=== PATIENT | male | born 1985 | race Caucasian/White ===

== ENCOUNTER 2016-05-09 19:07 | Emergency (ER) ==
[2016-05-09] MEDS ORDERED: DECADRON IM ONE (20:13)
[2016-05-09] MEDS ORDERED: XYLOCAINE-MPF 1% INJ ONE (20:13)
[2016-05-09] MEDS ORDERED: ROCEPHIN IM ONE (20:13)
--- NOTE | 2016-05-09 20:14 | PROVIDER DOCUMENTATION ---
[facility]-EE General <AbramNingnarda Ag - Last Filed: 05/09/16 20:13> - General Source: patient - [facility]: reports: throat Quality of Pain: reports: pressure Severity: reports: mild Onset/Duration: reports: 2 days ago Timing: reports: still present Associated Symptoms: reports: cough, facial pain/swelling, nasal congestion/ drainage, sore throat. denies: change in hearing, drooling, ear drainage, fever , malaise, poor fluid intake, poor solids intake, sinus infection, tooth pain, voice change Similar Symptoms Previously?: No Recently seen or treated by another doctor?: No - Throat/Dental Throat/Dental Problem Symptoms: reports: sore throat, throat swelling. denies: toothache, jaw pain, swelling of jaw/face, trouble breathing, unable to swallow Recently seen a dentist or have an appointment?: No <Wesley Lechuga - Last Filed: 05/09/16 20:26> - General Chief Complaint: Cold Symptoms Stated Complaint: COUGH, CONGESTION Time Seen by Provider: 05/09/16 20:10 Allergies/Adverse Reactions: Patient Allergies Allergy/AdvReac Type Severity Reaction Status Date / Time amoxicillin [Amoxicillin] Allergy HIVES Verified 05/09/16 19:45 Penicillins Allergy HIVES Verified 05/09/16 19:45 Home Medications: Home Medication List Medication Instructions Recorded Confirmed Last Taken Type Cephalexin [Keflex] 500 mg PO BID #20 capsule 05/09/16 Unknown Rx - History of Present Illness-[facility] General Nature of Presenting Problem: Pt is a 31 yom who presents to ER with CC of a 48 hour hx of cough, congestion, sinus pain, and sore throat. No further complaints. (Wesley Lechuga) Review of Systems - Adult - REVIEW OF SYSTEMS - ADULT Constitutional: denies: chills, fever, fatique, night sweats, weight gain, weight loss Eyes: reports: no symptoms reported Ears, Nose, Mouth & Throat: reports: sinus problem, throat pain. denies: ear discharge, ear pain, hearing loss, nose pain, hoarseness, throat swelling Cardiovascular: reports: no symptoms reported Respiratory: reports: cough. denies: chronic cough, dyspnea on exertion, excessive sputum production, hemoptysis, pleurisy, shortness of breath, wheezing Gastrointestinal: reports: no symptoms reported Genitourinary: reports: no symptoms reported Musculoskeletal: reports: no symptoms reported Integumentary: reports: no symptoms reported Neurological: reports: no symptoms reported Psychiatric: reports: no symptoms reported Endocrine: reports: no symptoms reported Hematologic/Lymphatic: reports: no symptoms reported Allergic/Immunologic: reports: no symptoms reported All Other Systems: Reviewed and Negative <Wesley Lechuga - Last Filed: 05/09/16 20:26> Past History - Adult - PAST MEDICAL HISTORY-ADULT Review of Records: reports: Nursing Assessment Review, Medications Reviewed - IMMUNIZATION STATUS Childhood Immunizations: See Nurse Assessment Flu Vaccine: See Nurse Assessment <Wesley Lechuga - Last Filed: 05/09/16 20:26> Physical Exam- EENT - Physical Exam EENT Initial Vital Signs Reviewed: Yes General Appearance: appears well, alert, mild distress. negative: no apparent distress, lethargic, slow to respond, obtunded, combative Ear Exam: bilateral ear: auricle normal, canal normal, TM normal Throat Exam: normal mouth inspection, mandibular swelling, tonsillar exudate, tonsillar swelling. negative: pharynx normal, dental tenderness Neck: non-tender, full range of motion, supple, lymphadenopathy. negative: C- spine tenderness, limited range of motion Respiratory: chest non-tender, lungs clear, normal breath sounds. negative: respiratory distress, decreased breath sounds, accessory muscle use, wheezing Cardiovascular: normal peripheral pulses, regular rate, rhythm. negative: bradycardia, tachycardia Abdominal Exam: normal bowel sounds, non tender, soft. negative: abnormal bowel sounds, distended, tenderness Lymphatic: cervical node tenderness. negative: no adenopathy Back Exam: no CVA tenderness, no vertebral tenderness. negative: CVA tenderness Integumentary: normal color, normal turgor, warm/dry Neurologic: grossly normal, no motor/sensory deficits. negative: facial droop, focal weakness, motor weakness, sensory deficit Psych/Mental Status: normal mood/affect, normal thought content, normal thought process, oriented x 3 <Wesley Lechuga - Last Filed: 05/09/16 20:26> Progress <Ning Valverde - Last Filed: 05/09/16 20:13> <Wesley Lechuga - Last Filed: 05/09/16 20:26> - PLAN OF CARE/RESULTS Progress/Plan/Lab Results: Vital Signs - 24 hr 05/09/16 19:12 Temperature 98.0 F Pulse Rate 92 H Respiratory 14 Rate Blood Pressure 133/92 O2 Sat by Pulse 100 Oximetry Orders Category Date Time Status DIRECT STREP Stat Lab 05/09/16 19:17 Completed Flu Swab [INFLUENZA SCREEN A/B] Stat Lab 05/09/16 19:17 Completed CefTRIAXONE [Rocephin] Med 05/09/16 20:13 Discontinued 1 gm IM NOW ONE Dexamethasone [Decadron] Med 05/09/16 20:13 Discontinued 4 mg IM NOW ONE Lidocaine 1% Pf [Xylocaine-Mpf 1%] Med 05/09/16 20:13 Discontinued 5 ml INJ NOW ONE (Wesley Lechuga) Departure - Departure Time of Disposition Order: 20:13 Certified Medical Emergency: Emergent <Ning Valverde - Last Filed: 05/09/16 20:13> - Departure Time of Disposition Order: 20:26 Certified Medical Emergency: Emergent <Wesley Lechuga - Last Filed: 05/09/16 20:26> - Departure DIAGNOSIS: Strep pharyngitis Disposition: HOME 01 Condition: Stable Additional Instructions: Tyelnol and motrin for pain and fever ED Follow Up Instructions: You have been treated by a care provider in the Emergency Department. These instructions are being provided to you so you can have an understanding of how to care for yourself upon discharge. Upon discharge from the Emergency Department, you are responsible for making arrangements for follow-up care by a physician of your choice. Take all prescribed medications as directed. Return to the Emergency Department immediately for any new or worsening symptoms. You may call the Physician Referral phone number at [phone] to obtain a list of Physicians who are taking new patients. Prescriptions: Cephalexin [Keflex] 500 mg PO BID #20 capsule Referrals: None,PCP [Primary Care Provider] - Attestation - Scribe Verification/Attestation Scribe:: Wesley Lechuga Acting as Scribe for:: Ning Valverde Scribe documention review:: This chart was documented by a scribe and accurately reflects the service the provider performed and the decisions made by the provider. <Wesley Lechuga - Last Filed: 05/09/16 20:26> Physician Attestation
[2016-05-09 20:44] VITALS: BP 135/87
== END 2016-05-09 21:03 | disposition home or self-care (01) ==
LOC: ED 19:07
DX: J02.0 Streptococcal pharyngitis (principal); R05 Cough; R09.81 Nasal congestion; R22.1 Localized swelling, mass and lump, neck; J34.89 Other specified disorders of nose and nasal sinuses; R22.0 Localized swelling, mass and lump, head; R59.0 Localized enlarged lymph nodes
CPT/HCPCS: 87430; 87804; J0696; J1100